=== PATIENT | female | born 1945 | race Caucasian/White ===

== ENCOUNTER → 2020-05-16 07:12 | Outpatient (CLI) | payer MEDICARE, SELFPAY ==
--- NOTE | ~2020-05-16 | MM_ITS ---
EXAMINATION: MM screening [facility] BI w elie HISTORY: Screening mammogram TECHNIQUE: Craniocaudal and mediolateral oblique 3-D tomosynthesis images were obtained and synthetic 2-D images were generated. CAD analysis was submitted and interpreted. COMPARISON: 03/20/2019, 03/17/2018, 03/15/2017 BREAST PARENCHYMAL COMPOSITION: The breasts are heterogeneously dense, which may obscure small masses . FINDINGS: There is no evidence of suspicious mass, calcification, or architectural distortion to sugg est malignancy in either breast. There has been no suspicious interval change. IMPRESSION: 1. No mammographic evidence of malignancy. 2. Recommend routine screening mammography in one year. BI-RADS Category 1: Negative Reviewed, dictated and finalized at location A. THCARE ARCHITECT
== END ==
PROVIDERS: PCP Family Medicine Adolescent Medicine; Visit Provider Family Medicine Adolescent Medicine
DX: Z12.31 Encounter for screening mammogram for malignant neoplasm of breast (principal)
CPT/HCPCS: 77063; 77067

== ENCOUNTER 2021-03-13 00:32 | Day surgery (SDC) | payer MEDICARE, SELFPAY ==
[2021-02-26 12:41] VITALS: BMI 27.0
[2021-03-13 07:32] VITALS: BP 171/94; PULSE 97; RESP 18; TEMP 36.7; O2SAT 100
[2021-03-13] MEDS: LACTATED RINGERS 1,000 ML 150 ML IV CONT (07:42)
--- NOTE | 2021-03-13 08:07 | P.PNAN_ITS ---
Anes - Initial Pre Proc Eval Procedure: Operation Date: 03/13/21 08:45 Proposed Procedures p Screening Colonoscopy - Cortes Suresh MD Date/Time: 03/13/21 08:07 Surgeon: Cortes Suresh MD Pre Op Diagnosis: hx of colon polyps, family hx of colon ca Patient Data Age: 75 Gender: F Height: 1.68 m Weight: 74 kg Last Vital Signs Temp 98.1 F 03/13/21 07:32 Pulse 97 03/13/21 07:32 Resp 18 03/13/21 07:32 BP 171/94 H 03/13/21 07:32 Pulse Ox 100 03/13/21 07:32 Allergies Allergy/AdvReac Type Severity Reaction Status Date / Time codeine Allergy Severe N/V Verified 03/13/21 07:31 epinephrine Allergy Severe TACHYCARDIA Verified 03/13/21 07:31 erythromycin base AdvReac Severe DIDNT WORK Verified 03/13/21 07:31 AND MADE HER FEEL FUNNY meperidine AdvReac Severe SLOW TO Verified 03/13/21 07:31 WAKE midazolam AdvReac Severe SLOW TO Verified 03/13/21 07:31 WAKE Home Medications Medication Instructions Recorded Confirmed Type Centrum Singles-Vitamin C 1 tab-cap PO DAILY 02/26/21 02/26/21 History Cinnamon 1 tab-cap PO DAILY 02/26/21 02/26/21 History aspirin [Baby Aspirin] 81 mg PO DAILY 02/26/21 02/26/21 History atorvastatin 40 mg PO DAILY 02/26/21 02/26/21 History fenofibrate 160 mg PO DAILY 02/26/21 02/26/21 History lisinopril 40 mg PO DAILY 02/26/21 02/26/21 History montelukast 10 mg PO DAILY 02/26/21 02/26/21 History omega-3 fatty acids [Fish Oil] 1 cap PO DAILY 02/26/21 02/26/21 History Patient hx anesthesia problems: none Family hx anesthesia problems: none Results Review: All pre-operative results and documents have been reviewed as part of the pre-operative evaluation. [facility] Past Medical History Medical History (Updated 03/13/21 @ 08:03 by Sidney Wilson MD) Hyperlipidemia Hypertension Social History Social History Smoking status: Never smoker Alcohol intake: current Alcohol use details: rarely Substance use: never Substance use type: does not use Living arrangements: with family Spiritual care concerns: No Anes - Eval Final PreProcedure Day of Procedure 03/13/21 08:07 Patient weight: overweight Heart: regular rate and rhythm Lungs: clear to auscultation Airway: Mallampati scale class II Neurological: alert and oriented Last oral intake: >/= 8 hours ASA classification: II Emergent: no Anesthetic plan: proceed Anesthesia type and monitoring: general GIVS and standard monitoring Results Review: All pre-operative results and documents have been reviewed as part of the pre-operative evaluation. Informed Consent: The patient's anesthetic plan and its attendant risks and benefits were discussed with the patient/family/POA. Questions were solicited and answers provided to the satisfaction of the patient/family/POA.
--- NOTE | 2021-03-13 08:54 | PM.HPGS ---
History of Present Illness History of Present Illness Consent: Risks, benefits, and alternatives have been discussed and questions answered. Patient agrees to proceed with procedure. Chief complaint: hx of colon polyps, family hx of colon ca Narrative: Angelica Graham is a 75 year old female with last colonoscopy 2013 Review of Systems Constitutional: Constitutional: Denies headache(s) and Denies weakness Eyes: Eyes: Denies blurry vision ENT: Reports Normal hearing present, Denies headache(s) and Denies neck pain Cardiovascular: Cardiovascular: Denies chest pain and Denies dyspnea Respiratory: Respiratory: Denies dyspnea Gastrointestinal: Gastrointestinal: Reports no additional gastrointestinal complaints Genitourinary: Genitourinary: Denies dysuria Musculoskeletal: Musculoskeletal: Denies neck pain Integumentary/Breasts: Skin/Breast: Denies dry skin Neurologic: Reports Normal hearing present, Denies headache(s) and Denies weakness Psychiatric: Psychiatric: Denies anxiety Endocrine: Endocrine: Denies change in body appearance Hematologic/Lymphatic: Hematologic/Lymphatic: Denies easy bleeding Allergic/Immunologic: Allergic/Immunologic: Denies urticaria PMFSH Past Medical History Medical History (Updated 03/13/21 @ 08:55 by Cortes Suresh MD) Colon cancer screening Hyperlipidemia Hypertension Social History Social History Smoking status: Never smoker Alcohol intake: current Alcohol use details: rarely Substance use: never Substance use type: does not use Living arrangements: with family Spiritual care concerns: No Meds Home Medications and Allergies Home Medications Medication Instructions Recorded Confirmed Type Centrum Singles-Vitamin C 1 tab-cap PO DAILY 02/26/21 02/26/21 History Cinnamon 1 tab-cap PO DAILY 02/26/21 02/26/21 History aspirin [Baby Aspirin] 81 mg PO DAILY 02/26/21 02/26/21 History atorvastatin 40 mg PO DAILY 02/26/21 02/26/21 History fenofibrate 160 mg PO DAILY 02/26/21 02/26/21 History lisinopril 40 mg PO DAILY 02/26/21 02/26/21 History montelukast 10 mg PO DAILY 02/26/21 02/26/21 History omega-3 fatty acids [Fish Oil] 1 cap PO DAILY 02/26/21 02/26/21 History Allergies Allergy/AdvReac Type Severity Reaction Status Date / Time codeine Allergy Severe N/V Verified 03/13/21 07:31 epinephrine Allergy Severe TACHYCARDIA Verified 03/13/21 07:31 erythromycin base AdvReac Severe DIDNT WORK Verified 03/13/21 07:31 AND MADE HER FEEL FUNNY meperidine AdvReac Severe SLOW TO Verified 03/13/21 07:31 WAKE midazolam AdvReac Severe SLOW TO Verified 03/13/21 07:31 WAKE Vital Signs Vital Signs - 24 hr 03/13/21 07:32 Temperature 98.1 F Pulse Rate 97 Respiratory Rate 18 Blood Pressure 171/94 H Pulse Oximetry 100 Exam Const: General: comfortable and no acute distress HENMT: General nose exam: Normal nares present Eyes: General: appearance normal, both eyes and all related structures Neck: Neck: no JVD Resp: Auscultation: clear to auscultation bilaterally Cardio: Rate: regular rate Rhythm: regular rhythm GI: Inspection: non-distended GI Palp: Yes Soft to palpation Skin: General skin exam: normal color Neuro: General: gait normal Speech: normal speech Extrem: General: normal to inspection Psych: Mental Status: mental status grossly normal Assessment and Plan Assessment and plan (1) Colon cancer screening: Code(s): Z12.11 - Encounter for screening for malignant neoplasm of colon Status: Acute Assessment and Plan: colonoscopy
[2021-03-13 09:33] VITALS: BP 138/71; PULSE 65; RESP 18; O2SAT 98
[2021-03-13 09:43] VITALS: BP 149/70; PULSE 63; RESP 22; O2SAT 99
[2021-03-13 09:53] VITALS: BP 171/79; PULSE 56; RESP 19; O2SAT 99
== END 2021-03-13 09:59 | disposition home or self-care (01) ==
PROVIDERS: PCP Family Medicine Adolescent Medicine; Visit Provider Internal Medicine Gastroenterology
PROC: 0DJD8ZZ Inspection of Lower Intestinal Tract, Via Natural or Artificial Opening Endoscopic (ICD-10-PCS; CPT 45378; principal; 2021-03-13 08:45)
DX: Z12.11 Encounter for screening for malignant neoplasm of colon (principal); D12.3 Benign neoplasm of transverse colon; K57.30 Diverticulosis of large intestine without perforation or abscess without bleeding; K64.8 Other hemorrhoids; K64.4 Residual hemorrhoidal skin tags; I10 Essential (primary) hypertension; E78.5 Hyperlipidemia, unspecified; Z79.82 Long term (current) use of aspirin
CPT/HCPCS: 45380; 45385; 88305; J2001; J2704; J7120

== ENCOUNTER → 2021-06-22 11:14 | Outpatient (CLI) | payer MEDICARE, SELFPAY ==
--- NOTE | ~2021-06-22 | MM_ITS ---
EXAMINATION: MM screening [facility] BI w elie HISTORY: Screening TECHNIQUE: Craniocaudal and mediolateral oblique 3-D tomosynthesis images were obtained and synthetic 2-D images were generated. CAD analysis was submitted and interpreted. COMPARISON: Comparison to multiple prior studies sequentially, with oldest reviewed study dated 07/2014. BREAST PARENCHYMAL COMPOSITION: Breast composed of scattered areas of fibroglandular density FINDINGS: There is no evidence of suspicious mass, calcification, or architectural distortion to sugg est malignancy in either breast. There has been no suspicious interval change. IMPRESSION: 1. No mammographic evidence of malignancy. 2. Recommend routine screening mammography in one year. BI-RADS Category 1: Negative Reviewed, dictated and finalized at location A. RMATICS APPLICATION ANALYST
== END ==
PROVIDERS: PCP Physician Assistant; Visit Provider Physician Assistant
DX: Z12.31 Encounter for screening mammogram for malignant neoplasm of breast (principal)
CPT/HCPCS: 77063; 77067

== ENCOUNTER 2021-11-18 16:36 | Emergency (ER) | payer MEDICARE, SELFPAY ==
--- NOTE | 2021-11-18 16:42 | ED.URI ---
HPI - URI/Sore Throat General Chief Complaint: Upper Respiratory Infection Stated Complaint: Cough,Sinus,Headache Time Seen by Provider: 11/18/21 16:50 Source: patient, RN notes reviewed and old records reviewed Mode of arrival: ambulatory Limitations: no limitations History of Present Illness HPI Narrative: 76 year old female who presents to [facility] care with complaints of cough, sinus drainage congestion and headache with fever since . She thought she was having allergy ad sinus problems initially but has cough and fever so took home COVID test which was positive today t home. Patient states that daughter stated that she needed to be seen to see if any treatment was needed. Patient has had Covid vaccinations. MD elicited complaint: fever, cough, nasal congestion, sinus pain and other (headache tested positive for home COVID test) Treatments prior to arrival: none Related Data Home Medications Medication Instructions Recorded Confirmed Centrum Singles-Vitamin C 1 tab-cap PO DAILY 02/26/21 11/18/21 Cinnamon 1 tab-cap PO DAILY 02/26/21 11/18/21 aspirin 81 mg chewable tablet 81 mg PO DAILY 02/26/21 11/18/21 lisinopril 40 mg tablet 40 mg PO DAILY 02/26/21 11/18/21 montelukast 10 mg tablet 10 mg PO DAILY 02/26/21 11/18/21 omega-3 fatty acids 1 cap PO DAILY 02/26/21 11/18/21 Allergies Allergy/AdvReac Type Severity Reaction Status Date / Time codeine Allergy Severe N/V Verified 11/18/21 16:39 epinephrine Allergy Severe TACHYCARDIA Verified 11/18/21 16:39 erythromycin base AdvReac Severe DIDNT WORK Verified 11/18/21 16:39 AND MADE HER FEEL FUNNY meperidine AdvReac Severe SLOW TO Verified 11/18/21 16:39 WAKE midazolam AdvReac Severe SLOW TO Verified 11/18/21 16:39 WAKE Review of Systems Review of Systems: CONSTITUTIONAL: Positive for fever, chills, or sweats. EYES: Denies visual changes, redness, or discharge. ENT: Positive for rhinorrhea, congestion,no sore throat, or otalgia. CARDIOVASCULAR: Denies chest pain, palpitations, or edema. RESPIRATORY: Positive for cough denies dyspnea. GASTROINTESTINAL: Denies abdominal pain, nausea, vomiting, or diarrhea. GENITOURINARY: Denies dysuria or hematuria. SKIN: Denies rash or itching. MUSCULOSKELETAL: Denies back pain, joint pain, or myalgia. NEUROLOGIC: Positive for headache, numbness, or weakness. PSYCHIATRIC: Positive for history of anxiety or depression. [facility] Past Medical History Medical History (Updated 11/19/21 @ 08:07 by Angelique Fletcher NP) Anxiety Arthritis Colon cancer screening Diabetes no medication History of sinus problem Hyperlipidemia Hypertension Family History Family History (Updated 11/18/21 @ 17:04 by Angelique Fletcher NP) Mother Diabetes mellitus Sibling Carcinoma of colon Social History Social History Smoking status: Never smoker Alcohol intake: current Alcohol use details: rarely Substance use: never Substance use type: does not use Spiritual care concerns: No Comments At time of signature, agree with nursing past medical, surgical, social and family history. There is no relevant family history pertinent to the presenting complaint Exam Narrative: GENERAL: Well-appearing, well-nourished, and in no acute distress. HEAD: Normocephalic, atraumatic. EYES: PERRLA and EOMI. ENT: Nares with some redness of membranes clear rhinorrhea no epistaxis. Mucous membranes moist.TM's normal with good light reflex, throat pink with no lesions or tonsil swelling, post nasal drainage noted. NECK: Supple. no lymphadenopathy CHEST: Clear to auscultation. No respiratory distress.[id number]% on room air HEART: Regular rate and rhythm. No murmur heard. Normal peripheral pulses. ABDOMEN: Soft, nontender, nondistended, normal active bowel sounds. EXTREMITIES: Normal range of motion. No edema. SKIN: Warm, dry, no rash. NEURO: No focal deficits. Alert and oriented x3. Course Course Level of Care: Express Care Visit
[2021-11-18 16:43] VITALS: BP 152/69; PULSE 98; RESP 18; TEMP 37.7; O2SAT 99
== END 2021-11-18 17:18 | disposition home or self-care (01) ==
PROVIDERS: Emergency Provider Registered Nurse; PCP Family Medicine Adolescent Medicine
DX: U07.1 COVID-19 (principal); J06.9 Acute upper respiratory infection, unspecified; M19.90 Unspecified osteoarthritis, unspecified site; E11.9 Type 2 diabetes mellitus without complications; E78.5 Hyperlipidemia, unspecified; I10 Essential (primary) hypertension; Z79.82 Long term (current) use of aspirin
CPT/HCPCS: 99211; G0463

== ENCOUNTER → 2022-08-05 12:26 | Outpatient (CLI) | payer MEDICARE, SELFPAY ==
--- NOTE | ~2022-08-05 | MM_ITS ---
EXAMINATION: MM screening [facility] BI w elie HISTORY: Screening mammogram, family history of breast cancer in her daughter. TECHNIQUE: Craniocaudal and mediolateral oblique 3-D tomosynthesis images were obtained and synthetic 2-D images were generated. CAD analysis was submitted and interpreted. COMPARISON: 06/22/2021, 05/16/2020, 03/20/2019 BREAST PARENCHYMAL COMPOSITION: The breasts are heterogeneously dense, which may obscure small masses . FINDINGS: No suspicious mass, calcification, or architectural distortion are identified in either saravanan ast to suggest malignancy. There has been no suspicious interval change. IMPRESSION: 1. No mammographic evidence of malignancy. 2. Recommend routine screening mammography in one year. BI-RADS Category 1: Negative Reviewed, dictated and finalized at location A. WABLE ENERGY CONSULTANT
== END ==
PROVIDERS: PCP Family Medicine Adolescent Medicine; Visit Provider Physician Assistant
DX: Z12.31 Encounter for screening mammogram for malignant neoplasm of breast (principal)
CPT/HCPCS: 77063; 77067

== ENCOUNTER 2023-08-14 07:12 | Outpatient (CLI) | payer MEDICARE, SELFPAY ==
--- NOTE | ~2023-08-14 | MM_ITS ---
EXAMINATION: MM screening [facility] BI w elie HISTORY: Screening mammogram TECHNIQUE: Craniocaudal and mediolateral oblique 3-D tomosynthesis images were obtained and synthetic 2-D images were generated. Bilateral rotated lateral CC views. CAD analysis was submitted and interp reted. COMPARISON: 08/05/2022, 06/22/2021, 03/20/2019, 03/17/2018 bilateral screening mammogram examinations BREAST PARENCHYMAL COMPOSITION: There are scattered areas of fibroglandular density. FINDINGS: There is a biopsy marker on the right; history of prior benign right breast biopsy. There i s no evidence of suspicious mass, calcification, or architectural distortion to suggest malignancy in either breast. There has been no suspicious interval change. IMPRESSION: 1. No mammographic evidence of malignancy. 2. Recommend routine screening mammography in one year. BI-RADS Category 1: Negative Reviewed, dictated and finalized at location A.
== END 2023-08-14 07:13 ==
LOC: MICIMG 07:12
PROVIDERS: PCP Nurse Practitioner Family; Visit Provider Nurse Practitioner Family
DX: Z12.31 Encounter for screening mammogram for malignant neoplasm of breast (principal)
CPT/HCPCS: 77063; 77067

== ENCOUNTER 2024-08-17 07:13 | Outpatient (CLI) | payer MEDICARE, SELFPAY ==
--- NOTE | ~2024-08-17 | MM_ITS ---
EXAMINATION: MM screening [facility] BI w elie HISTORY: Screening TECHNIQUE: Craniocaudal and mediolateral oblique 3-D tomosynthesis images were obtained and synthetic 2-D images were generated. CAD analysis was submitted and interpreted. COMPARISON: Comparison to multiple prior studies sequentially, with oldest reviewed study dated 03/02. BREAST PARENCHYMAL COMPOSITION: Not dense: There are scattered areas of fibroglandular density. FINDINGS: Punctate calcifications of the left breast are not significantly changed dating back to . There is no evidence of suspicious mass, calcification, or architectural distortion to sugge st malignancy in either breast. There has been no suspicious interval change. IMPRESSION: 1. No mammographic evidence of malignancy. 2. Recommend routine screening mammography in one year. BI-RADS Category 2: Benign finding(s). Reviewed, dictated and finalized at location B.
== END 2024-08-17 07:14 | disposition home or self-care (01) ==
LOC: MICIMG 07:14
PROVIDERS: PCP Family Medicine Adolescent Medicine; Visit Provider Family Medicine Adolescent Medicine
DX: Z12.31 Encounter for screening mammogram for malignant neoplasm of breast (principal)
CPT/HCPCS: 77063; 77067